=== PATIENT | male | born 1955 | race Caucasian/White ===

== ENCOUNTER → 2017-02-02 | Outpatient (CLI) | payer BC, MEDICARE ==
[~2017-02-02] MED LIST: ANUSOL-HC CREAM30 GM R; CALAN SR GENER120 MG PO; CEFAZOLIN2 GM/50 ML IV; COREG25 MG PO; COUMADIN ** IA5 MG PO; COUMADIN PO; COZAAR50 MG PO; CUBICIN (NON-F500 MG IV; DELTASONE5 MG PO; DEXILANT60 MG PO; ILOTYCIN1 GM OPHTH; IMDUR30 MG PO; LASIX20 MG PO; LOPRESSOR50 MG PO; MAG-OX-400(241400 MG PO; NORVASC5 MG PO; PLAVIX75 MG PO; SODIUM BICARBO650 MG PO; TYLENOL325 MG PO; ULTRAM50 MG PO; VALCYTE450 MG PO; ZOCOR20 MG PO
[2017-02-02 12:33] LABS: BASOPHIL % 0.3 %; EOSINOPHIL % 0.3 %; HEMATOCRIT 39.4 % (37.0-53.0); HEMOGLOBIN 12.5 g/dL (11.0-16.0); IMMATURE GRANULOCYTE # 0.1 K/uL (0.0-0.3); IMMATURE GRANULOCYTE % 0.6 %; LYMPHOCYTE # 2.6 K/uL (0.8-4.0); LYMPHOCYTE % 26.7 %; MCH 26.7 pg (27.0-34.0); MCHC 31.7 gm/dL (32.0-36.5); MONOCYTE # 0.6 K/uL (0.0-1.0); MONOCYTE % 5.7 %; MPV 9.2 fl (9.4-12.4); NEUTROPHIL # (ANC) 6.5 K/uL (1.4-9.0); NEUTROPHIL % 66.4 %; NRBC % 0 /100WBC (0-0.00); PLATELET COUNT 121 K/uL (150-450); RBC 4.69 M/uL (3.50-5.50); RDW-CV 16.6 % (11.9-14.6); WBC 9.8 K/uL (4.0-11.0)
== END ==
LOC: LGSMG 12:28
PROVIDERS: Internal Medicine Nephrology
DX: Z00.00 Encounter for general adult medical examination without abnormal findings (principal); E87.5 Hyperkalemia; M32.14 Glomerular disease in systemic lupus erythematosus; M32.9 Systemic lupus erythematosus, unspecified; I12.9 Hypertensive chronic kidney disease with stage 1 through stage 4 chronic kidney disease, or unspecified chronic kidney disease; N18.4 Chronic kidney disease, stage 4 (severe)

== ENCOUNTER → 2017-03-01 | Outpatient (CLI) | payer BC, MEDICARE | LOC: LGSMG 14:03 | DX: Z00.00 Encounter for general adult medical examination without abnormal findings (principal); N25.89 Other disorders resulting from impaired renal tubular function; I50.32 Chronic diastolic (congestive) heart failure; N18.4 Chronic kidney disease, stage 4 (severe); Z79.899 Other long term (current) drug therapy; E87.5 Hyperkalemia; E78.5 Hyperlipidemia, unspecified; E79.0 Hyperuricemia without signs of inflammatory arthritis and tophaceous disease; E83.51 Hypocalcemia; E83.42 Hypomagnesemia; M32.14 Glomerular disease in systemic lupus erythematosus; R80.9 Proteinuria, unspecified; M32.9 Systemic lupus erythematosus, unspecified ==